=== PATIENT | male | born 1955 | race Caucasian/White ===

== ENCOUNTER 2019-03-23 05:11 | Inpatient (IN) ==
--- NOTE | 2019-03-14 15:36 | EKG Report ---
Test Performed on : 03/14/2019 2:28:05 PM Test Reason : PAT Blood Pressure : / mmHG Vent. Rate : 069 BPM Atrial Rate : 069 BPM P-R Int : 166 ms QRS Dur : 136 ms QT Int : 436 ms P-R-T Axes : -14 041 037 degrees QTc Int : 467 ms Normal sinus rhythm. Right bundle branch block Abnormal ECG No previous ECGs available Confirmed by Rafiq Abrams MD ([id number]) on 03/15/2019 6:31:22 PM
[2019-03-14 15:57] LABS: HEMATOCRIT 35.4 % (42.0-52.0); HEMOGLOBIN 11.7 g/dL (14.0-18.0); MCH 33.6 PG (27-31); MCHC 33.1 g/dL (33-37); MCV 101.7 FL (81-99); MPV 11.2 FL (7.4-10.4); RBC 3.48 XMIL (4.7-6.1); RDW 14.2 % (11.5-14.5); WBC 9.9 X1000 (4.8-10.8)
[2019-03-14 16:10] LABS: AGAP 10; BUN 10 mg/dL (8-22); CALCIUM 9.1 mg/dL (8.8-10.2); CHLORIDE 98 mmol/L (98-107); COSMO 278; CREATININE 1.1 mg/dL (0.7-1.2); ESTIMATED GFR > 60; GLUCOSE 90 mg/dL (70-104); POTASSIUM 5.3 mmol/L (3.5-5.1); SODIUM 140 mmol/L (136-145); TCO2 32 mmol/L (25-35)
[2019-03-23] MEDS ORDERED: PEPCID ONE (05:36)
[2019-03-23] MEDS ORDERED: REGLAN ONE (05:36)
[2019-03-23] MEDS ORDERED: KEFZOL 1 GM/D5W 1 GM/50 ML IVPB ONE (05:36)
[2019-03-23] MEDS ORDERED: LR 1,000 ML ONE ×2 (05:36→10:05)
[2019-03-23] MEDS ORDERED: PAPAVERINE ONE (06:12)
[2019-03-23] MEDS ORDERED: NS 1,000 ML ONE (06:12)
[2019-03-23] MEDS ORDERED: KEFZOL ONE (06:12)
[2019-03-23] MEDS ORDERED: HEPARIN ONE (06:12)
[2019-03-23] MEDS ORDERED: MARCAINE 0.25% PF/EPI 1:200,000 ONE (06:12)
[2019-03-23] MEDS ORDERED: DIPRIVAN 1% ONE (06:21)
[2019-03-23] MEDS ORDERED: XYLOCAINE-MPF 2% ONE (06:22)
[2019-03-23] MEDS ORDERED: SODIUM CHLORIDE 0.9% 10 ML ONE (06:22)
[2019-03-23] MEDS ORDERED: NORCURON ONE (06:22)
[2019-03-23 07:33] LABS: URINE SOURCE CATH
[2019-03-23 07:42] LABS: BILIRUBIN URINE NEGATIVE (NEGATIVE); BLOOD URINE NEGATIVE (NEGATIVE); COLOR YELLOW; GLUCOSE URINE NEGATIVE (NEGATIVE); KETONE URINE NEGATIVE (NEGATIVE); LEUKOCYTES URINE NEGATIVE (NEGATIVE); NITRITE URINE NEGATIVE (NEGATIVE); PROTEIN URINE NEGATIVE (NEGATIVE); SP GRAVITY URINE 1.016; TURBIDITY URINE CLEAR (CLEAR); UR EPITHELIAL CELLS <10 /HPF (<10); URINE BACTERIA NEGATIVE /HPF; URINE RBC <10 /HPF (<10); URINE WBC <10 /HPF (<10); UROBILINOGEN URINE NORMAL (NORMAL)
[2019-03-23] MEDS ORDERED: VENTOLIN HFA ONE (07:45)
[2019-03-23] MEDS ORDERED: ROBINUL ONE ×2 (07:45→11:23)
[2019-03-23] MEDS ORDERED: NEO-SYNEPHRINE ONE (07:45)
[2019-03-23] MEDS ORDERED: HEPARIN (DOSE) ONE (07:51)
[2019-03-23] MEDS ORDERED: DECADRON ONE (07:51)
[2019-03-23] MEDS ORDERED: DILAUDID ONE (09:05)
--- NOTE | 2019-03-23 09:43 | OPERATIVE NOTE ---
PROCEDURE DATE: 03/23/2019 OPERATION PERFORMED: Right femoropopliteal in situ vein bypass. SURGEON: Moises Bowden MD. MUSIC DEPARTMENT CHAIR: ZACK Mckeon. 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 DESCRIPTION OF PROCEDURE: Satisfactory general endotracheal anesthesia was achieved. The right groin and leg were prepped and draped in a sterile fashion. The greater saphenous vein had been previously mapped. We made a vertical incision in the groin and angled it over the course of the greater saphenous vein. We then dissected down to the common femoral artery and surrounded it with an umbilical tape. We dissected out the superficial femoral and profunda branches, and surrounded them with vessel loops. A pulse was noted down to the takeoff of the profunda. We then identified the greater saphenous vein. There were multiple branches off of it, which we ligated. We then marked the vein on its anterior aspect. We gave the patient 9000 units of heparin. We put an antibiotic sponge in the groin. We then turned our attention to the distal medial thigh. I made a longitudinal incision there with the vein on the caudad aspect in the subcutaneous tissue. We then dissected into the popliteal space and identified the popliteal artery. It was isolated with vessel loops proximally and distally. A branch was surrounded with a 2-0 silk. We then turned our attention back to the proximal and the major greater saphenous vein that had been marked. It was then clamped off with a small bulldog clamp. We used a Satinsky clamp at its take-off and then amputated the vein at its take-off. We oversewed the stump with a 5-0 Prolene stitch, in first a horizontal mattress closure, followed by a simple closure so it was closed in two layers. We then looked at the open end of the vein and no valves were identified there. We translocated over to the artery. We then chose a spot on the artery on its anterior aspect right at the bifurcation of the common femoral. We incised it and then extended it slightly with the Miles scissors. Used a 6.0 punch in the artery. I then constructed the anastomosis between the vein and the artery using a 5-0 Prolene stitch. Upon completion of the anastomosis, flow was established in the artery, which entered into the vein for a ways until it met the first valve. A pulse was noted. We then turned our attention to the distal medial thigh. We identified the vein in the subcutaneous tissue in the flap caudad to our incision. We isolated it. Small branches were isolated. We then took one of the small branches and passed the LeMaitre valvulotome up the vein. First, it went up a branch and did not come out the main vein that we had identified so we had to dissect further down the leg to identify where it was going off into a branch. We identified that branch and clipped it off so that the valvulotome would go up the main greater saphenous vein. After reaching the proximal anastomosis, we opened the valvulotome and engaged the valves as we went from proximal to distal carefully. After we had completed that, we had a pulse down in the distal vein. We clipped off the branches in the distal incision and translocated the vein down to the artery. After we clipped off the branches, it seemed that we lost the pulse so we had to further dissect down the leg to expose the vein. We identified a char conveyor tender that the valvulotome was going out. We had to reposition and clip off the char conveyor tender so that the main inline flow would come on down into our vein graft in the distal wound. After we had clipped off all the branches along the course of the vein and clipped off the perforators, we had good pulsatile flow in the vein graft. We then swung it over to the artery. We incised the artery and extended it with the Miles scissors. We had good retrograde flow from the popliteal. We passed a 4 down into the popliteal without difficulty. We then cut the vein after clamping off the vein graft. We then cut it to match the arteriotomy and used a 6-0 Prolene stitch to make the distal anastomosis. After completing the anastomosis, flow was established. A pulse was noted in the popliteal distal to the anastomosis. Hemostasis was satisfactory. We once again looked at the vein to be certain all the branches were clipped off and they were. We then proceeded to close the long incision over the vein with a 3-0 Polysorb running in the subcutaneous tissue. We closed the proximal incision over the artery with interrupted 3-0 Polysorb and a 2-0 Polysorb running, and then an additional 3-0 Polysorb in the subcutaneous tissue. The distal incision was closed with interrupted 3-0 Polysorb in the subcutaneous tissue over the vein and then a running 3-0 Polysorb stitch. The skin was then closed with sukumar throughout the course of the incisions. Sterile dressings were applied. He tolerated it well and was sent to the recovery room in satisfactory condition. cc: Moises Bowden MD MTDD
[2019-03-23] MEDS ORDERED: ZOFRAN IV PRN (10:50)
[2019-03-23] MEDS ORDERED: NEOSTIGMINE ONE (11:23)
[2019-03-23] MEDS ORDERED: ZOFRAN ONE (11:23)
[2019-03-23] MEDS: NORCO-10 PO PRN ×2 (11:27→21:45)
[2019-03-23] MEDS: LR 1,000 ML IV SCH ×2 (11:30→21:44)
[2019-03-23] MEDS: DILAUDID IV PRN ×2 (15:48→18:49)
[2019-03-23] MEDS: KEFZOL 1 GM/D5W 1 GM/50 ML IVPB IV SCH (15:50)
--- NOTE | 2019-03-23 18:34 | GENERAL SURGERY PROGRESS NOTE ---
DATE: 03/23/2019 Mr. Salomon is awake and alert. His bandage is dry. He has got a posterior tibial pulse. His pain relief is adequate. The plan will be to check his labs in the morning. We possibly could let him go home tomorrow if everything is well. cc: Moises Bowden MD
[2019-03-23] MEDS ORDERED: TOPROL XL PO SCH (21:00)
[2019-03-23] MEDS ORDERED: PERIDEX MT SCH (21:00)
[2019-03-23] MEDS ORDERED: LIPITOR PO SCH (21:00)
[2019-03-23] MEDS: PERIDEX MT SCH (21:47)
[2019-03-23] MEDS: NEURONTIN PO SCH (21:47)
[2019-03-23] MEDS: LIORESAL PO SCH (21:52)
[2019-03-24] MEDS: KEFZOL 1 GM/D5W 1 GM/50 ML IVPB IV SCH (00:07)
[2019-03-24] MEDS: DILAUDID IV PRN ×2 (01:16→09:30)
[2019-03-24] MEDS: NORCO-10 PO PRN ×2 (06:41→14:17)
[2019-03-24 06:53] LABS: BASO# 0.02 X1000 (0.0-0.2); BASO% 0.1 % (0.0-0.8); EOS# 0.04 X1000 (0.0-0.7); EOS% 0.3 % (0.0-10.0); HEMATOCRIT 29.5 % (42.0-52.0); HEMOGLOBIN 9.2 g/dL (14.0-18.0); LYMPH# 2.33 X1000 (1.2-3.4); LYMPH% 16.7 % (20.5-51.1); MCH 33.2 PG (27-31); MCHC 31.2 g/dL (33-37); MCV 106.5 FL (81-99); MONO# 1.61 X1000 (0.11-0.59); MONO% 11.5 % (1.7-9.3); MPV 11.7 FL (7.4-10.4); NEUT# 9.94 X1000 (1.4-6.5); NEUT% 71.4 % (42.2-75.2); PLT 259 X1000 (130-400); RBC 2.77 XMIL (4.7-6.1); RDW 14.1 % (11.5-14.5); WBC 13.94 X1000 (4.8-10.8)
[2019-03-24 07:04] LABS: AGAP 10; BUN 15 mg/dL (8-22); CALCIUM 9.2 mg/dL (8.8-10.2); CHLORIDE 101 mmol/L (98-107); COSMO 283; CREATININE 1.1 mg/dL (0.7-1.2); ESTIMATED GFR > 60; GLUCOSE 108 mg/dL (70-104); SODIUM 141 mmol/L (136-145); TCO2 30 mmol/L (25-35)
[2019-03-24] MEDS: LR 1,000 ML IV SCH (07:50)
[2019-03-24] MEDS ORDERED: HYDROCHLOROTHIAZIDE PO SCH (09:00)
[2019-03-24] MEDS ORDERED: CYMBALTA PO SCH (09:00)
[2019-03-24] MEDS ORDERED: MOBIC PO SCH (09:00)
[2019-03-24] MEDS ORDERED: ASPIRIN PO SCH (09:00)
[2019-03-24] MEDS ORDERED: BENICAR PO SCH (09:00)
[2019-03-24] MEDS: NEURONTIN PO SCH (09:32)
[2019-03-24] MEDS: LIORESAL PO SCH (09:32)
[2019-03-24] MEDS: PERIDEX MT SCH (09:33)
[2019-03-24] MEDS ORDERED: SALINE LOCK IV FLUID XX ONE (09:46)
--- NOTE | 2019-03-24 10:46 | GENERAL SURGERY PROGRESS NOTE ---
DATE: 03/24/2019 SUBJECTIVE: He is postop day 1. His said he has been a little bit confused. OBJECTIVE: Vital Signs: Temperature is 99 degrees, heart rate 80, blood pressure 126/63. Extremities: He has a palpable posterior tibial and dorsalis pedis pulses. Wound is exposed, looks good. It was cleaned with Betadine and recovered. LABORATORY DATA: Hemoglobin is 9.2, hematocrit 29.5, white count 13,900. Chemistry is fine. Anticipate possibly discharging him later today. We will remove his Dyer catheter. cc: Moises Bowden MD
[2019-03-24 15:19] VITALS: BP 123/65
--- NOTE | 2019-03-24 19:41 | GENERAL SURGERY PROGRESS NOTE ---
DATE: 03/24/2019 His temperature is 99 degrees. Hemodynamics are good. He is mentally clear this afternoon after stopping the Dilaudid. He has palpable pedal pulses. We discussed bandage change with his . We will write him something for pain. He will return to see me in the office in followup in a week. cc: Moises Bowden MD
== END 2019-03-24 17:35 | disposition home or self-care (01) | DRG 254 ==
LOC: 4N 05:11 → OR 05:11 → OBSVTOIN 10:35
PROVIDERS: ADMIT Surgery; ATTEND Surgery
CPT/HCPCS: 80048; 81001; 85025; 85027; 93005; 93010; 93971; 94761; 94799; A9270; J0690; J1100; J1170; J1644; J2370; J2405; J2440; J7030; J7120

== ENCOUNTER 2019-08-18 01:43 | Inpatient (IN) ==
[2019-08-10 14:46] LABS: HEMATOCRIT 43.2 % (42.0-52.0); HEMOGLOBIN 13.4 g/dL (14.0-18.0); MCH 29.4 PG (27-31); MCV 94.7 FL (81-99); RBC 4.56 XMIL (4.7-6.1); RDW 16.3 % (11.5-14.5); WBC 13.5 X1000 (4.8-10.8)
[2019-08-10 16:19] LABS: AGAP 14; BUN 13 mg/dL (8-22); CALCIUM 9.7 mg/dL (8.8-10.2); CHLORIDE 100 mmol/L (98-107); COSMO 283; CREATININE 1.1 mg/dL (0.7-1.2); ESTIMATED GFR > 60; GLUCOSE 102 mg/dL (70-104); POTASSIUM 5.3 mmol/L (3.5-5.1); SODIUM 142 mmol/L (136-145); TCO2 28 mmol/L (25-35)
[2019-08-18] MEDS ORDERED: DUONEB (A & A) ONE (07:05)
[2019-08-18] MEDS ORDERED: PEPCID ONE (07:06)
[2019-08-18] MEDS ORDERED: INVANZ 1 GM/NS 1 GM/50 ML IVPB ONE (07:06)
[2019-08-18] MEDS ORDERED: LR 1,000 ML ONE ×2 (07:06→07:15)
[2019-08-18] MEDS ORDERED: REGLAN ONE (07:06)
[2019-08-18] MEDS ORDERED: ENTEREG ONE (07:06)
[2019-08-18] MEDS ORDERED: SENSORCAINE 0.25%/EPI 1:200,000 ONE (07:15)
[2019-08-18] MEDS ORDERED: DIPRIVAN 1% ONE (07:26)
[2019-08-18] MEDS ORDERED: XYLOCAINE-MPF 2% ONE (07:27)
[2019-08-18] MEDS ORDERED: NORCURON ONE (07:27)
[2019-08-18] MEDS ORDERED: SODIUM CHLORIDE 0.9% 10 ML ONE (07:27)
[2019-08-18] MEDS ORDERED: FENTANYL ONE ×3 (07:31→09:05)
[2019-08-18] MEDS ORDERED: QUELICIN (DOSE) ONE (07:56)
[2019-08-18 08:17] LABS: URINE SOURCE CATH
[2019-08-18] MEDS ORDERED: DECADRON ONE (08:18)
[2019-08-18] MEDS ORDERED: ZOFRAN ONE (08:18)
[2019-08-18] MEDS ORDERED: OFIRMEV 1000 MG/ISOTONIC SOLN 1,000 MG/100 ML BOTTLE ONE (08:18)
[2019-08-18 08:26] LABS: BILIRUBIN URINE NEGATIVE (NEGATIVE); BLOOD URINE NEGATIVE (NEGATIVE); COLOR YELLOW; GLUCOSE URINE NEGATIVE (NEGATIVE); KETONE URINE TRACE mg/dL (NEGATIVE); LEUKOCYTES URINE TRACE (NEGATIVE); NITRITE URINE NEGATIVE (NEGATIVE); PROTEIN URINE TRACE mg/dL (NEGATIVE); TURBIDITY URINE CLEAR (CLEAR); UROBILINOGEN URINE NORMAL (NORMAL)
[2019-08-18 08:27] LABS: UR EPITHELIAL CELLS <10 /HPF (<10); URINE BACTERIA NEGATIVE /HPF; URINE RBC <10 /HPF (<10); URINE WBC <10 /HPF (<10)
[2019-08-18] MEDS ORDERED: LABETALOL (DOSE) ONE (09:08)
[2019-08-18] MEDS ORDERED: ROBINUL ONE (09:34)
[2019-08-18] MEDS ORDERED: ZOFRAN IV PRN (10:11)
[2019-08-18] MEDS: MORPHINE ONE ×3 (10:36→10:54)
[2019-08-18] MEDS: NS 1,000 ML IV SCH ×2 (11:00→19:27)
[2019-08-18] MEDS ORDERED: B & O 16A SUPP PR PRN (12:05)
[2019-08-18] MEDS: DILAUDID IV PRN ×3 (12:21→22:58)
[2019-08-18] MEDS: OFIRMEV 1000 MG/ISOTONIC SOLN 1,000 MG/100 ML BOTTLE IV SCH ×2 (14:15→20:21)
--- NOTE | 2019-08-18 17:21 | OPERATIVE NOTE ---
PROCEDURE DATE: 08/18/2019 PROCEDURE: Laparoscopic-assisted right colectomy. SURGEON: Moises Bowden MD. DELIVERY PROFESSIONAL: Jacek Scherer RN. PREOP DIAGNOSIS: Cecal carcinoma. POSTOPERATIVE DIAGNOSIS: Cecal carcinoma. DESCRIPTION OF PROCEDURE: Satisfactory general endotracheal anesthesia achieved. Abdomen is prepped and draped in a sterile fashion. We anesthetized the skin just above the umbilicus, incised the skin, dissected down the fascia, scored the fascia, introduced 11 trocar. We insufflated through this trocar. Under direct visualization, used a 5 trocar in the mid hypogastrium, a 5 trocar in the right lower quadrant, an 11 mm trocar in the midepigastrium. We placed the patient in Trendelenburg and turned him to the left. The blue dye was seen in the cecum. We then began incising along the white line of Toldt using the laparoscopic LigaSure and a padded grasper to grasp the tissue. We incised the white line of Toldt and went caudad to free up the appendix and the terminal ilium so we dissected into the retroperitoneum behind the cecum. We then placed the patient in reverse Trendelenburg and went up the white line of Toldt to the hepatic flexure. We mobilized the hepatic flexure laparoscopically. We divided the attachments superior to the transverse colon the proximal portion to allow mobilization of the hepatic flexure toward the midline. We did this all the way to the edge of the duodenum. So after we had adequately mobilized the right colon we then flattened the patient and made a 9 cm natalya transversely in the right lower quadrant. We anesthetized the skin 0.25 Marcaine with epinephrine. We incised the skin and carried our incision through the skin and subcutaneous fat. The external oblique muscle was divided. The internal oblique muscle was exposed to spread. The transversus muscle was spread and then we opened the perineum transversely. We placed a medium- sized wound protector. We then were able to deliver the right colon through the wound without difficulty. We then cleaned off the ilium with the electrocautery and stapled and divided it with the STEPHENIE 80 blue cartridge in an oblique fashion. We then chose a spot in the proximal transverse colon and again cleaned it off and divided it with a STEPHENIE 80 mm blue cartridge. The bowel was grasped with a Jaquan to avoid any twisting. We then scored the peritoneum of the mesentery with electrocautery and then used the LigaSure to go through the mesentery all the way to the apical portion the mesentery where the vessels were clamped, divided and suture ligated with 2-0 silk first then a 0 silk suture ligature. This provided adequate hemostasis of the vessels going to the cecum. This allowed us to hand off the specimen. We then used a 3-0 silk to approximate the edge of the ilium to the edge of the transverse colon. We cut off the corners with Romero scissors and introduced a STEPHENIE 80 blue cartridge again, this did a [id number] stapled anastomosis. The open end of the bowel was then grasped with Allis clamps and a TA 60 blue cartridge was used to staple off the open end of each limb of the bowel. One additional staple line using a 30 mm staple was used to completely closed the open end. We then placed a 3-0 silk at the opposite end of the staple line to take the tension off of it. We over sewed the staple line interrupted 3-0 silks in a Lembert fashion to invert the staple line. We changed gloves at this point and rid ourselves of the contaminated instruments, placed 3-0 silks in the mesentery and then placed the anastomosis back into the abdominal cavity. We removed the wound protector, closed the peritoneum with a running 2-0 Polysorb. We allowed the transversus muscle to reapproximate. The internal oblique muscle was approximated loosely with a running 2-0 Polysorb. The external oblique muscle was reapproximated with interrupted 0 Polysorb simple [id number] stitches. We irrigated out the subcutaneous tissue. We then re-insufflated. We closed the subcutaneous tissue with 3-0 Polysorb stitches. Upon replacing the laparoscope back into the abdominal cavity anastomosis was identified. The mesenteric was adequately closed. Hemostasis was satisfactory. We aspirated what fluid had collected. We then used a Gael-Aj wound closure for the 11 trocar sites just above the umbilicus and in the mid epigastrium. We then desufflated after that and removed our trocars. We added an additional 2-0 Polysorb stitches in the fascia both the 11 trocar sites. We then closed each trocar incision with 4-0 Polysorb subcuticular stitches including the right lower quadrant incision. Dominik slade sterile OpSites were applied. He tolerated it well. He had 150 mL of blood loss. The specimen was sent for pathology. He was sent to the recovery room in satisfactory condition. cc: Kwabena Mtz MD
[2019-08-18] MEDS: NEURONTIN PO SCH (20:22)
[2019-08-18] MEDS: TOPROL XL PO SCH (20:22)
[2019-08-18] MEDS: PERIDEX MT SCH (20:22)
[2019-08-18] MEDS: REQUIP PO SCH (20:22)
[2019-08-18] MEDS: LIORESAL PO SCH (20:22)
[2019-08-18] MEDS: LIPITOR PO SCH (20:22)
[2019-08-18] MEDS: RESTORIL PO SCH (20:22)
[2019-08-18] MEDS: LOVENOX SUBQ SCH (20:23)
[2019-08-19] MEDS: OFIRMEV 1000 MG/ISOTONIC SOLN 1,000 MG/100 ML BOTTLE IV SCH ×2 (01:30→10:07)
[2019-08-19] MEDS: DILAUDID IV PRN ×5 (02:05→22:58)
[2019-08-19] MEDS: NS 1,000 ML IV SCH (03:45)
[2019-08-19] MEDS: PRILOSEC PO SCH (06:13)
[2019-08-19 07:06] LABS: BASO# 0.01 X1000 (0.0-0.2); BASO% 0.1 % (0.0-0.8); EOS# 0.04 X1000 (0.0-0.7); EOS% 0.3 % (0.0-10.0); HEMATOCRIT 39.2 % (42.0-52.0); HEMOGLOBIN 11.8 g/dL (14.0-18.0); IMM GRAN# 0.02 X1000 (0.0-0.04); IMM GRAN% 0.2 % (0.0-0.5); LYMPH# 1.94 X1000 (1.2-3.4); LYMPH% 15.1 % (20.5-51.1); MCH 28.5 PG (27-31); MCHC 30.1 g/dL (33-37); MCV 94.7 FL (81-99); MONO# 1.33 X1000 (0.11-0.59); MONO% 10.4 % (1.7-9.3); MPV 11.4 FL (7.4-10.4); NEUT# 9.49 X1000 (1.4-6.5); NEUT% 73.9 % (42.2-75.2); PLT 228 X1000 (130-400); RBC 4.14 XMIL (4.7-6.1); RDW 16.2 % (11.5-14.5); WBC 12.83 X1000 (4.8-10.8)
[2019-08-19 07:26] LABS: AGAP 11; BUN 13 mg/dL (8-22); CALCIUM 8.5 mg/dL (8.8-10.2); CHLORIDE 101 mmol/L (98-107); COSMO 278; ESTIMATED GFR > 60; GLUCOSE 111 mg/dL (70-104); POTASSIUM 4.5 mmol/L (3.5-5.1); SODIUM 139 mmol/L (136-145); TCO2 27 mmol/L (25-35)
[2019-08-19] MEDS ORDERED: HYDROCHLOROTHIAZIDE PO SCH (09:00)
[2019-08-19] MEDS ORDERED: OLMESARTAN PO SCH (09:00)
[2019-08-19] MEDS: D5 1/2 NS + KCL 20 MEQ 1,000 ML IV SCH ×3 (09:57→22:34)
[2019-08-19] MEDS: FERROUS SULFATE PO SCH (10:11)
[2019-08-19] MEDS: BENICAR PO SCH (10:12)
[2019-08-19] MEDS: CYMBALTA PO SCH (10:12)
[2019-08-19] MEDS: ENTEREG PO SCH ×2 (10:12→21:21)
[2019-08-19] MEDS: NEURONTIN PO SCH ×2 (10:12→21:21)
[2019-08-19] MEDS: LIORESAL PO SCH ×2 (10:12→21:21)
[2019-08-19] MEDS: FOLIC ACID PO SCH (10:12)
[2019-08-19] MEDS: PERIDEX MT SCH ×2 (10:13→21:22)
[2019-08-19] MEDS: HYDROCHLOROTHIAZIDE PO SCH (10:17)
--- NOTE | 2019-08-19 13:40 | PROGRESS NOTE ---
DATE: 08/19/2019 Mr. Jose Martin Salomon is now postop day 1 from a laparoscopic-assisted right colon resection per Dr. Bowden for cancer. He looks comfortable in his bed. He still has a Dyer catheter tube in, IV fluids going. His heart rate is 83, blood pressure 170/93, O2 saturation 95%. He is afebrile. His abdomen is protuberant but not tightly distended. His incisions are dressed appear to be intact. He has had no nausea or vomiting. Has no NG tube. PLAN: Lovenox has begun. Will take his intermittent compression hose off. I will decrease his IV fluids. We will plan to take his Dyer catheter tube out tomorrow. We will try to increase his activity. We will keep him NPO today except for ice chips. cc: MD Moises Salgado MD
[2019-08-19] MEDS: REQUIP PO SCH (21:21)
[2019-08-19] MEDS: TOPROL XL PO SCH (21:21)
[2019-08-19] MEDS: RESTORIL PO SCH (21:21)
[2019-08-19] MEDS: LIPITOR PO SCH (21:21)
[2019-08-19] MEDS: LOVENOX SUBQ SCH (21:22)
[2019-08-20] MEDS: DILAUDID IV PRN ×5 (01:39→22:06)
[2019-08-20] MEDS: PRILOSEC PO SCH ×2 (05:47→06:18)
[2019-08-20] MEDS: HYDROCHLOROTHIAZIDE PO SCH (08:50)
[2019-08-20] MEDS: PERIDEX MT SCH ×2 (08:50→22:06)
[2019-08-20] MEDS: CYMBALTA PO SCH (08:50)
[2019-08-20] MEDS: BENICAR PO SCH (08:50)
[2019-08-20] MEDS: LIORESAL PO SCH ×2 (08:51→22:07)
[2019-08-20] MEDS: FOLIC ACID PO SCH (08:51)
[2019-08-20] MEDS: NEURONTIN PO SCH ×2 (08:51→22:08)
[2019-08-20] MEDS: FERROUS SULFATE PO SCH (08:51)
[2019-08-20] MEDS: ENTEREG PO SCH ×2 (08:51→22:07)
--- NOTE | 2019-08-20 11:17 | PROGRESS NOTE ---
DATE: 08/20/2019 SUBJECTIVE: Mr. Jose Martin Salomon is now postop day 2 from a laparoscopic assisted right colon resection. He is on the Entereg protocol, and he has had two bowel movements since I have seen him yesterday and some gas. We will advance his diet to a clear liquid diet. He is awake. He is sore. His abdomen is soft without unusual tenderness. His heart rate is 82, blood pressure 153/80, O2 saturation 94%. He is afebrile. He is on no antibiotics. PLAN: Give him clear liquids. Increase his activity. I will continue the Entereg protocol until Dr. Bowden returns tomorrow. Will also continue IV fluids. cc: MD Moises Salgado MD
[2019-08-20] MEDS: D5 1/2 NS + KCL 20 MEQ 1,000 ML IV SCH (18:35)
[2019-08-20] MEDS: LOVENOX SUBQ SCH (22:06)
[2019-08-20] MEDS: TOPROL XL PO SCH (22:06)
[2019-08-20] MEDS: RESTORIL PO SCH (22:07)
[2019-08-20] MEDS: LIPITOR PO SCH (22:07)
[2019-08-20] MEDS: REQUIP PO SCH (22:08)
[2019-08-21] MEDS: D5 1/2 NS + KCL 20 MEQ 1,000 ML IV SCH (05:39)
[2019-08-21] MEDS: PRILOSEC PO SCH (06:04)
[2019-08-21] MEDS: CYMBALTA PO SCH (08:52)
[2019-08-21] MEDS: FOLIC ACID PO SCH (08:52)
[2019-08-21] MEDS: FERROUS SULFATE PO SCH (08:52)
[2019-08-21] MEDS: HYDROCHLOROTHIAZIDE PO SCH (08:52)
[2019-08-21] MEDS: NEURONTIN PO SCH ×2 (08:53→20:54)
[2019-08-21] MEDS: LIORESAL PO SCH ×2 (08:53→20:53)
[2019-08-21] MEDS: ENTEREG PO SCH ×2 (08:53→20:53)
[2019-08-21] MEDS: BENICAR PO SCH (08:54)
[2019-08-21] MEDS: PERIDEX MT SCH ×2 (08:54→20:58)
[2019-08-21] MEDS ORDERED: D5 1/2 NS + KCL 20 MEQ 1,000 ML IV SCH (09:11)
--- NOTE | 2019-08-21 09:52 | GENERAL SURGERY PROGRESS NOTE ---
DATE: 08/21/2019 OBJECTIVE: He is afebrile. Heart rate 82, blood pressure 131/87. He has taken clear liquids satisfactorily, and he has had some bowel activity. PLAN: The plan will be to advance him to full liquids today and hopefully solids tomorrow. cc: Moises Bowden MD
[2019-08-21] MEDS: DILAUDID IV PRN ×2 (14:57→20:55)
[2019-08-21] MEDS: RESTORIL PO SCH (20:52)
[2019-08-21] MEDS: LIPITOR PO SCH (20:53)
[2019-08-21] MEDS: LOVENOX SUBQ SCH (20:53)
[2019-08-21] MEDS: REQUIP PO SCH (20:54)
[2019-08-21] MEDS: TOPROL XL PO SCH (20:54)
[2019-08-22] MEDS: PRILOSEC PO SCH (06:15)
[2019-08-22] MEDS: BENICAR PO SCH (09:21)
[2019-08-22] MEDS: NEURONTIN PO SCH (09:21)
[2019-08-22] MEDS: LIORESAL PO SCH (09:21)
[2019-08-22] MEDS: FOLIC ACID PO SCH (09:21)
[2019-08-22] MEDS: CYMBALTA PO SCH (09:21)
[2019-08-22] MEDS: ENTEREG PO SCH (09:21)
[2019-08-22] MEDS: FERROUS SULFATE PO SCH (09:22)
[2019-08-22] MEDS: HYDROCHLOROTHIAZIDE PO SCH (09:27)
[2019-08-22] MEDS: PERIDEX MT SCH (09:31)
[2019-08-22 11:27] VITALS: BP 124/73
--- NOTE | 2019-08-22 13:25 | GENERAL SURGERY PROGRESS NOTE ---
DATE: 08/22/2019 SUBJECTIVE: Mr. Salomon is doing generally well. OBJECTIVE: Vital Signs: He is afebrile, heart rate 78, blood pressure 131/72. He is passing flatus. His bowels had moved. He tolerated solids through this morning. His wounds were fine. PLAN: I think we can discharge him today. We discussed diet, wound care and activity. He will return to see me in the office in 2 weeks. He is to keep his bandage on for 3 more days and then remove them. cc: Moises Bowden MD
--- NOTE | 2019-09-06 07:49 | DISCHARGE SUMMARY ---
ADMISSION DATE: 08/18/2019 DISCHARGE DATE: 08/22/2019 PRIMARY DISCHARGE DIAGNOSIS: Cancer of the right colon ([id number]). PRIMARY PROCEDURE: Laparoscopic assisted right colectomy. HISTORY: This is a 63-year-old who was found to have a large mass in his cecum. Biopsy proved this to be adenocarcinoma. He was then prepped as an outpatient, and admitted the morning of the and underwent the laparoscopic assisted right colectomy. Postoperatively, he did generally well. He was placed on DVT prophylaxis with Lovenox. We took his Dyer out on the second postoperative day, and started him on liquids which we progressed. By 08/22, he was doing generally well. He was tolerating liquids. Actually, he took solids the morning of his dismissal. His bowels have moved. His wounds were fine. It was felt he could be discharged home. Postop instructions were discussed. He will return to the office next week for re- evaluation. He will resume his usual home medicines. cc: Moises Bowden MD
== END 2019-08-22 12:25 | disposition home or self-care (01) | DRG 331 ==
LOC: SURHOLD 01:43 → 4N 12:00
PROVIDERS: ADMIT Surgery; ATTEND Surgery